=== PATIENT | female | born 2000 | race African-American/Black ===

== ENCOUNTER 2025-05-22 14:07 | Emergency (ER) | payer OTHER, SELFPAY ==
[2025-05-22 14:08] VITALS: BP 127/83
--- NOTE | 2025-05-22 14:37 | ED.MUSCINJ ---
HPI-Injury
General
Chief Complaint: Musculo-Skeletal Complaint
Source: patient
Exam Limitations: none
Time Seen by Provider: 05/22/25 14:30
Nursing documentation reviewed up to this point in time: agreed with
History of Present Illness-Injury
Initial Injury comments:
The patient is a 24-year-old female w h/o L shoulder fracture and dislocation after a fall at [facility] on 05/18, reduced at [facility], fell again the next day and went back to [place], had it reduced again. She now presents from [facility] stating
she dislocated left shoulder again which occurred earlier today at approximately 1:00 PM. The patient reported that the dislocation happened while she attempted to adjust her sling.
Past History
Past History
ED Past Medical History: Asthma
ED Past Surgical History: None
Social History
Living: alf
Review of Systems
Review of Systems
Allergies reviewed?: Yes
All Other Systems: ROS reviewed and negative except as documented in HPI and ROS
Musculoskeletal: Reports other (L shoulder feels dislocated)
Phy Exam
Physical Exam
Physical Exam:
GENERAL: No acute distress. A&Ox3.
CONSTITUTIONAL: Afebrile.
RESPIRATORY: Regular respirations, nonlabored, lungs clear.
CARDIOVASCULAR: Regular rate and rhythm, no murmurs, no rubs.
GI: Soft, nontender
MUSCULOSKELETAL: Left arm in sling, no obvious deformity. Normal radial pulse, distal neurovascular intact. Moves with ease. Well perfused.
SKIN: Warm, dry, normal
PSYCH: Normal mood and affect. Well kept, interactive and appropriate
NEUROLOGIC: Awake, alert and oriented. No focal neurological deficits
Injury Course
Orders/Labs/Results
Orders:
Orders
05/22/25
CR Shoulder - Left 1 View Urgent
05/22/25 14:11
CR Shoulder - Left 1 View Urgent
Reason For Exam: hx of fx and dislocation; feels it is dislocated
05/22/25 14:36
Acetaminophen [Tylenol] 1,000 mg PO NOW STA
MDM/Problems Addressed
MDM/Problems Addressed:
The patient is a 24-year-old female w h/o L shoulder fracture and dislocation after a fall at [facility] on 05/18, reduced at [facility], fell again the next day and went back to [place], had it reduced again. She now presents from [facility] stating
she dislocated left shoulder again which occurred earlier today at approximately 1:00 PM. The patient reported that the dislocation happened while she attempted to adjust her sling.
NAD, pleasant, calm
3:45 PM:
Left shoulder x-ray read by this examiner: No dislocation, no obvious fracture
Patient's sling was readjusted for her comfort
Stable for discharge back to alf
Original sling removed and a new shoulder immobilizer/sling was applied with stated comfort
*Pulse Oximetry
SaO2: 100
Oxygen Mode of Delivery: Room air
Patient hypoxic: not evaluated
*Critical Care Note
Total Time (30-74mins, 75-104mins- exclusive of procedures): Not Applicable
ED Attending Note
-
Portions of this chart may have been created with voice recognition software.� Occasional wrong word or��sound alike� substitutions may have occurred due to the inherent limitations of voice recognition software.
Discharge Plan
Departure
Patient Disposition: Jail
Date of Disposition: 05/22/25
Time of Disposition: 16:05
Condition: Good
Discharge Problem:
Left shoulder pain, Injury of left shoulder
Instructions: Shoulder Dislocation (DC), How to Use a Shoulder Sling
Referrals:
[facility] [Family Provider, General]
Lucas Vidal MD [Active, Orthopedics] - As needed
Activity Restrictions/Additional Instructions:
As we discussed, wear the sling at all times until further instructed by the orthopedic doctor.
Call the orthopedic doctor Sean referred you to and make appointment for sometime in the next week.
If you have no orthopedic doctor, you may try Dr. Vidal for follow up.
See orthopedic doctor sometime within the 7-10 days
Tylenol or Ibuprofen as needed for pain.
Interventions
Interventions:
*Risk Screen - Suicide Last Done: 05/22/25 14:10
*Neglect/Abuse Screening Last Done: 05/22/25 15:13
ED-Musculoskeletal Assessment Last Done: 05/22/25 14:20
Discharge Date and Time
Print Language: SLOVENIAN
[2025-05-22] MEDS: TYLENOL 1000 MG PO (14:48)
== END 2025-05-22 16:16 ==
LOC: EMR 14:07
PROVIDERS: EMERGENCY PHYSICIAN Emergency Medicine
DX: S49.92XA Unspecified injury of left shoulder and upper arm, initial encounter (principal); S42.92XA Fracture of left shoulder girdle, part unspecified, initial encounter for closed fracture; M24.412 Recurrent dislocation, left shoulder; W19.XXXA Unspecified fall, initial encounter; Y92.149 Unspecified place in prison as the place of occurrence of the external cause; J45.909 Unspecified asthma, uncomplicated
CPT/HCPCS: 99283; 73020

== ENCOUNTER 2025-05-27 11:27 | Emergency (ER) | payer OTHER, SELFPAY ==
[2025-05-27 11:31] VITALS: BP 122/63
[2025-05-27 12:00] VITALS: BP 118/69
--- NOTE | 2025-05-27 13:06 | ED.GENMED ---
History of Present Illness
General
Chief Complaint: Musculo-Skeletal Complaint
Time Seen by Provider: 05/27/25 12:36
History of Present Illness
History of Present Illness:
24-year-old female presents for [facility] due to left shoulder discomfort and tingling to the left hand. She reports she has 'dislocated' her shoulder multiple times in the past week to 10 days. She is scheduled for an
orthopedic visit as an outpatient. Concern for the tingling to the left hand particularly when she supinates it
Past History
Past History
ED Past Medical History: Asthma
ED Past Surgical History: None
Social History
Living: [facility]
Review of Systems
Review of Systems
Allergies reviewed?: Yes
All Other Systems: ROS reviewed and negative except as documented in HPI and ROS
Phy Exam
Physical Exam
Physical Exam:
GEN: Well appearing, NAD, WDWN
HEENT: Oral mucosa moist, no scleral icterus
Cardiac: Regular rate
Lung: No respiratory distress, no tachypnea
MSK: No gross deformity or injuries, no sulcus deformity of the left shoulder. Range of motion not assessed due to pain. Normal sensation noted to left hand, wrist extension 5 out of 5 strength. Normal sensation to the deltoid
Skin: Good color, no pallor or jaundice, no rashes
Neuro: AO x3, moves all extremities freely
Psych: Calm, cooperative
Course
Orders/Labs/Results
Orders:
Orders
05/27/25 12:40
CR Shoulder - Left Min 2 View* Urgent
Comment:
Reason For Exam: shoulder pain
Vital Signs
Initial and Last Documented VS:
Initial Vital Signs
Temp Pulse Resp BP Pulse Ox
98.1 F 69 18 122/63 100
05/27/25 11:31 05/27/25 11:31 05/27/25 11:31 05/27/25 11:31 05/27/25 11:31
Last Documented Vital Signs
Temp Pulse Resp BP Pulse Ox
98.1 F 65 16 118/69 99
05/27/25 11:31 05/27/25 12:00 05/27/25 12:00 05/27/25 12:00 05/27/25 13:07
MDM/Problems Addressed
MDM/Problems Addressed:
No evidence of axillary nerve injury, recommend outpatient Ortho follow-up
*Pulse Oximetry
SaO2: 99
Oxygen Mode of Delivery: Room air
Patient hypoxic: no
*Critical Care Note
Total Time (30-74mins, 75-104mins- exclusive of procedures): Not Applicable
ED Attending Note
-
Portions of this chart may have been created with voice recognition software.� Occasional wrong word or��sound alike� substitutions may have occurred due to the inherent limitations of voice recognition software.
Discharge Plan
Departure
Patient Disposition: Home (Routine Discharge)
Date of Disposition: 05/27/25
Time of Disposition: 13:06
Patient with high blood pressure during this ER visit?: No
Discharge Problem:
Left shoulder pain
Instructions: Shoulder pain - ED discharge instructions
Referrals:
[facility] [Family Provider, General]
Alex Shepherd MD [Active, Orthopedics]
Interventions
Interventions:
*Risk Screen - Suicide Last Done: 05/27/25 11:31
*General Assessment Last Done: 05/27/25 11:31
*Neglect/Abuse Screening Last Done: 05/27/25 11:31
*ED- Fall Risk Assessment Last Done: 05/27/25 11:33
*ED COVID-19 Vaccine History Last Done: 05/27/25 11:33
*Nursing Disposition Last Done: 05/27/25 13:11
ED-Musculoskeletal Assessment Last Done: 05/27/25 12:55
Discharge Date and Time
Discharge Date/Time: 05/27/25 13:14
Print Language: NIGERIEN
== END 2025-05-27 13:14 | disposition home or self-care (01) ==
LOC: EMR 11:27
PROVIDERS: EMERGENCY PHYSICIAN Emergency Medicine
DX: M25.512 Pain in left shoulder (principal); R20.2 Paresthesia of skin; J45.909 Unspecified asthma, uncomplicated; Z91.018 Allergy to other foods
CPT/HCPCS: 99283; 73030